=== PATIENT | male | born 1985 | race Caucasian/White ===

== ENCOUNTER 2017-06-09 11:50 | Emergency (ER) | payer OTHER ==
[~2017-06-09] VITALS: Ht 172.7 cm; Wt 62.6 kg
[2017-06-09] MEDS ORDERED: LIDODERM 5% P1 PATCH TD (13:21)
[2017-06-09] MEDS ORDERED: MOTRIN800 MG PO (13:21)
[2017-06-09 13:37] VITALS: BP 127/81
== END 2017-06-09 13:38 | disposition home or self-care (01) ==
LOC: EME 11:50
DX: M51.36 Other intervertebral disc degeneration, lumbar region (principal); M54.42 Lumbago with sciatica, left side; F32.9 Major depressive disorder, single episode, unspecified; F17.200 Nicotine dependence, unspecified, uncomplicated; Z86.61 Personal history of infections of the central nervous system
CPT/HCPCS: 72100; 99281; 99284; J1885

== ENCOUNTER 2017-08-22 22:21 | Emergency (ER) | payer OTHER ==
[~2017-08-22] VITALS: Ht 170.2 cm; Wt 57.6 kg
[~2017-08-22 22:21] MED LIST: LIDODERM 5% P1 PATCH TD; MOTRIN800 MG PO
[2017-08-23] MEDS ORDERED: NORCO 5/3251 TABLET PO (00:41)
[2017-08-23] MEDS ORDERED: FLEXERIL10 MG PO (00:41)
[2017-08-23 01:10] VITALS: BP 136/89
== END 2017-08-23 01:19 | disposition home or self-care (01) ==
LOC: EME 22:21 → EXP 22:21
DX: S39.012A Strain of muscle, fascia and tendon of lower back, initial encounter (principal); W11.XXXA Fall on and from ladder, initial encounter; F17.200 Nicotine dependence, unspecified, uncomplicated
CPT/HCPCS: 72070; 72100

== ENCOUNTER 2017-09-15 02:21 | Emergency (ER) | payer OTHER ==
[~2017-09-15] VITALS: Ht 170.2 cm; Wt 57.3 kg
[~2017-09-15 02:21] MED LIST changes: +FLEXERIL10 MG PO; +NORCO 5/3251 TABLET PO
[2017-09-15 03:34] LABS: HEMATOCRIT 40.8 % (38.0-50.0); MCH 29.6 PG (29.0-34.0); MCHC 35.8 G/DL (30.0-36.0); MCV 82.8 FL (86-99); PLATELET COUNT 203 K/uL (156-360); RBC DIS.WIDTH-CV 13.3 % (11.8-14.6); RBC DIS.WIDTH-SD 40.2 % (39-53); RED BLOOD COUNT 4.93 M/uL (4.00-5.50); WHITE BLOOD COUNT 7.4 K/uL (4.1-10.2)
[2017-09-15 03:39] LABS: HEMOGLOBIN 14.6 G/DL (12.5-16.6)
[2017-09-15 03:50] LABS: CHLORIDE 102 MEQ/L (99-109); POTASSIUM 4.2 MEQ/L (3.7-5.4); SODIUM 137 MEQ/L (136-147)
[2017-09-15 04:05] LABS: CREATININE 0.9 MG/DL (0.6-1.3); GFR ESTIMATE (CALCULATED) > 59 mL/min/ (58.99-99999); GLUCOSE 95 mg/dL (70-99); SERUM ETHYL ALCOHOL < 10 mg/dL; UREA NITROGEN (BUN) 13 mg/dL (9-23)
[2017-09-15 05:16] LABS: APPEARANCE CLEAR ((CLEAR)); BILIRUBIN NEGATIVE; BLOOD NEGATIVE; COLOR YELLOW ((YELLOW)); GLUCOSE (STRIP) NEGATIVE; KETONES NEGATIVE; LEUKOCYTES NEGATIVE; NITRITE NEGATIVE; PROTEIN (STRIP) NEGATIVE; SPECIFIC GRAVITY 1.017 (1.000-1.030); UCUL ADDED? NO; UROBILINOGEN 0.2 MG/DL (0.2-1.0)
[2017-09-15 05:26] LABS: AMPHETAMINE NEGATIVE (500 ng/mL); BARBITURATES PRESUMPTIVE POSITIVE (200 ng/mL); BENZODIAZEPINES NEGATIVE (150 ng/mL); BUPRENORPHINE NEGATIVE (10 ng/mL); COCAINE NEGATIVE (150 ng/mL); METHADONE NEGATIVE (200 ng/mL); METHAMPHETAMINE NEGATIVE (500 ng/mL); OPIATES (MORPHINE) NEGATIVE (100 ng/mL); OXYCODONE NEGATIVE (100 ng/mL); PHENCYCLIDINE NEGATIVE (25 ng/mL); PROPOXYPHENE NEGATIVE (300 ng/mL); THC CANNABINOIDS NEGATIVE (50 ng/mL); TRICYCLIC ANTIDEPRESSANTS NEGATIVE (300 ng/mL)
[2017-09-15 06:02] VITALS: BP 122/65
== END 2017-09-15 06:03 | disposition home or self-care (01) ==
LOC: EME 02:21
PROVIDERS: Emergency Medicine
DX: R56.9 Unspecified convulsions (principal); F32.9 Major depressive disorder, single episode, unspecified; F17.200 Nicotine dependence, unspecified, uncomplicated; Z86.69 Personal history of other diseases of the nervous system and sense organs
CPT/HCPCS: 71046; 80048; 81003; 84999; 85027; 99281; 99285; G0480; J1200; J2765; J7030